=== PATIENT | male | born 1960 | race African-American/Black ===

== ENCOUNTER 2019-05-15 16:30 | Observation (INO) | payer MEDICARE, MEDICAID ==
[~2019-05-15] VITALS: Ht 175.3 cm; Wt 74.6 kg
[~2019-05-15 16:30] MED LIST: FLEXERIL OR; LORTAB 5 OR; LORTAB 7.5 PO; NO; ULTRAM50 M1 PO; ULTRAM50 MG OR
--- NOTE | 2019-05-15 16:48 | NUR ---
PATIENT AMBULATED TO ROOM WITH STEADY GAIT AND PHYSICIAN AT BEDSIDE FOR EVAL
[2019-05-15 17:06] LABS: HEMATOCRIT 40.1 % (39.0-50.0); HEMOGLOBIN 13.5 g/dl (14.0-18.0); IMMATURE GRANULOCYTES 0.2 % (0.0-5.0); MEAN CELL VOLUME 92.2 fL CALC (80.0-100.0); MEAN CORPUSCULAR HGB CONC 33.7 g/L CALC (32.0-36.0); NEUT# 1.75 thou/uL (1.82-7.42); RED BLOOD COUNT 4.35 mill/uL (4.70-6.10); RED CELL DISTRI WIDTH 15.2 % (11.5-15.5)
[2019-05-15 17:23] LABS: ALBUMIN 4.1 g/dL (3.2-5.0); ALKALINE PHOSPHATASE 88 u/l (38-126); ANION GAP 12 (6-22 (CALC)); BILIRUBIN, TOTAL 0.3 mg/dL (0.0-1.4); BUN 11 mg/dL (9-20); BUN/CREATININE RATIO 11 (12-20 (CALC)); CARBON DIOXIDE 26 mmol/l (22-30); CHLORIDE 105 mmol/l (95-108); GFR > 60 ML/MIN (>=60 (CALC)); GFR FOR AFR.AMER. > 60 ML/MIN (>=60 (CALC)); LIPASE 445 u/l (23-300); POTASSIUM 4.1 mmol/l (3.5-5.1); SGOT/AST 65 u/l (17-59); SODIUM 138 mmol/l (137-146); TOTAL PROTEIN 7.9 g/dL (6.3-8.2)
[2019-05-15 17:24] LABS: D-DIMER 0.28 mg/L (0.19-0.60); PROTHROMBIN TIME 10.3 SECONDS (9.0-12.5)
--- NOTE | 2019-05-15 17:48 | NUR ---
PATIENT MEDICATED WITH 324 MG OF ASPIRIN PO, INFORMED TO CALL FOR ANY UPSET STOMACH. NITRO OINTMENT APPLIES TO LEFT UPPER BACK FOR CHEST PAIN 01/01. CALL LIGHT GIVEN, AT BEDSIDE. WILL CONTINUE TO MONITOR.
--- NOTE | 2019-05-15 18:29 | NUR ---
PATIENT REPORTS NO CHANGE IN CHEST PAIN AFTER NITRO OINTMENT APPLIED.
--- NOTE | 2019-05-15 18:42 | NUR ---
AT BEDSIDE TO DISCUSS RESULTS AND PLANS TO ADMIT
--- NOTE | 2019-05-15 18:45 | NUR ---
BEDSIDE REPORT GIVEN TO CHIKIS KRISHNAN. CARE RELINQUISHED.
--- NOTE | 2019-05-15 18:46 | NUR ---
BEDSIDE REPORT GIVEN. PT TO BE ADMITTED. WAITING ON BED.
--- NOTE | 2019-05-15 19:40 | NUR ---
Admission Note Report Given to: CHIKIS MENJIVAR Transported by: X Wheelchair Stretcher Transported with: X Nurse Transporter X Patent IV O2 X Watch Supervisor
[2019-05-15 19:58] VITALS: BP 152/79
--- NOTE | 2019-05-15 20:30 | NUR ---
PATIENT ADMITTED FROM ER VIA WHEELCHAIR WITH ER STAFF IN ATTENDANCE AND SEVERAL VISITOR FOLLOWING. PATIENT MIN ASSIST FROM W/C TO STANDING SCALE TO BR-STEADY ON HIS FEET. PATIENT STATES THAT HE IS VOIDING QS WITHOUT ANY DIFFICULTY. ADMITTED TODAY FOR PANCREATITIS. C/O LEFT UPPER BACK PAIN-MEDICATED FOR PAIN WITH LORTAB 5/325MG PO. IV SITE TO LEFT AC SITE-IVF NS HUNG AND INFUSING AT 100CC/HR. SITE IS HEALTHY AT THIS TIME. TELE MONITOR INPLACE. LUNGS CLEAR. ABD IS SOFT WITH ACTIVE BS-STATES THAT HE HAD BM THIS MORNING,ORIENTED TO ROOM AND SURROUNDING. PATIENT EATING FOOD PROVIDED BY FAMILY WITHOU ANY DIFF. INSTRUCTED ON USE OF NURSE CALL LIGHT SYSTEM, TV REMOTE, AND PHONE. SAFETY PRECAUTIONS REINFORCED. CALL LIGHT IN REACH. WILL CONT TO MONITOR.
--- NOTE | 2019-05-16 00:27 | NUR ---
PATIENT RESTING IN BED AT THIS TIME WITH HOB ELEVATED. PATIENT WITH NO COMPLAINTS AT THIS TIME. TELE MONITOR IN PLACE. LAB WORK WAS DRAWN. IVF NS PATENT AND INFUSING VIA LEFT AC SITE. CALL LIGHT IN REACH. WILL CONT TO MONITOR.
--- NOTE | 2019-05-16 04:08 | NUR ---
PATIENT APPEARS SLEEPING AT THIS TIME. TELE MONITOR IN PLACE. IVF NS PATENT AND INFUSING VIA LEFT AC SITE AT 100CC/HR. SITE REMAINS HEALTHY AT THIS TIME. CALL LIGHT IN REACH. WILL CONT TO MONITOR.
[2019-05-16 04:12] VITALS: BP 134/78
[2019-05-16 06:32] LABS: CHOLESTEROL HDL RATIO 2.6 (<4.4 (CALC)); MAGNESIUM 1.7 mg/dL (1.6-2.3)
--- NOTE | 2019-05-16 07:00 | NUR ---
REPORT RECEIVED FROM CHIKIS MENJIVAR;PT APPEARS TO BE SLEEPING IN SEMI FOWLERS POSITION;NO S/S OF DISTRESS NOTED;RESPIRATIONS EVEN AND UNLABORED ON RA;IV FLUIDS INFUSING WITH EASE;TELE MONITORING IN PLACE;BED IN THE LOWEST POSITION WITH CALL LIGHT IN REACH;WILL CONTINUE TO MONITOR
--- NOTE | 2019-05-16 07:50 | NUR ---
PT RESTING IN SEMI FOWLERS POSITION, A&O X3;VS OBTAINED AND ASSESSMENT COMPLETED;PT DENIES ANY CURRENT PAIN OR DISCOMFORTS,PAIN SCALE AND REPORTING EDUCATED;RESPIRATIONS EVEN AND UNLABORED ON RA;ABDOMEN SOFT ON PALPATION AND ACTIVE IN ALL 4 QUADRANTS;STRONG PEDAL PULSES;SKIN INTACT;#20G TO LAC INFUSING NS @ 100ML/HR,SITE APPEARS HEALTHY;TELE MONITORING IN PLACE;PT DENIES ANY ADDITIONAL NEEDS AT THIS TIME AND IS ENCOURAGED TO CALL FOR ASSISTANCE IF NEEDED;CALL LIGHT IN REACH;WILL CONTINUE TO MONITOR
[2019-05-16 07:54] VITALS: BP 131/62
--- NOTE | 2019-05-16 10:52 | NUR ---
AT BEDSIDE DISCUSSING POC INCLUDING DISCHARGE HOME,PT AND SPOUSE VERBALIZE UNDERSTANDING.
--- NOTE | 2019-05-16 11:40 | NUR ---
ALL DISCHARGE INSTRUCTIONS PROVIDED AT THIS TIME,QUESTIONS ANSWERED;PT INSTRUCTED TO CUT DOWN ON DRINKING AND SMOKING. IV SITE REMOVED WITH CATHETER INTACT;PT DENIES ANY ADDITIONAL NEEDS AT THIS TIME;WHEELCHAIR TO BE PROVIDED FOR DISCHARGE HOME;FAMILY TO PROVIDED TRANSPORTATION.
--- NOTE | 2019-05-16 12:26 | NUR ---
Discharge instructions given. Patient verbalizes understanding of same. Discharged in stable condition via Wheelchair to Home with family. All belongings sent with pt. Pt transported to [facility] via wheelchair in stable condition accompanied by volunteer and family for d/c home.
== END 2019-05-16 12:28 | disposition home or self-care (01) ==
LOC: ED 16:30 → ED-I 18:32 → ED 18:58 → MS2 18:59
PROVIDERS: Emergency Medicine; ADMIT Internal Medicine; ATTEND Internal Medicine
DX: K85.20 Alcohol induced acute pancreatitis without necrosis or infection (principal); R07.89 Other chest pain; F10.10 Alcohol abuse, uncomplicated; F17.200 Nicotine dependence, unspecified, uncomplicated

== ENCOUNTER 2019-07-20 09:05 | Day surgery (SDC) | payer MEDICARE, MEDICAID ==
[~2019-07-20] VITALS: Ht 175.3 cm; Wt 71.2 kg
[~2019-07-20 09:05] MED LIST changes: +AMOX/K CLAV875 M1 PO; +CYCLOBENZAPR10 MG PO; +FLEXERIL PO; +FLONASE AL50 MCG/ACT; +MEDDOSEPAK PO; +PREDNISONE10 MG PO; +ULTRAM50 MG PO
[2019-07-20 11:53] LABS: BARBITURATES NEGATIVE (NEGATIVE); COCAINE NEGATIVE (NEGATIVE); METHADONE NEGATIVE (NEGATIVE); OXCYCODONE NEGATIVE (NEGATIVE); TETRAHYDROCANNABIONOL NEGATIVE (NEGATIVE); TRICYLIC ANTIDEPRESSANTS NEGATIVE (NEGATIVE)
[2019-07-20 13:36] VITALS: BP 156/85
== END 2019-07-20 14:00 | disposition home or self-care (01) ==
LOC: ENDO 09:05
PROVIDERS: ATTEND Surgery
PROC: 0DBF8ZX Excision of Right Large Intestine, Via Natural or Artificial Opening Endoscopic, Diagnostic (ICD-10-PCS; principal; 2019-07-20)
PROC: 0DBL8ZX Excision of Transverse Colon, Via Natural or Artificial Opening Endoscopic, Diagnostic (ICD-10-PCS; 2019-07-20)
PROC: 3E0H8GC Introduction of Other Therapeutic Substance into Lower GI, Via Natural or Artificial Opening Endoscopic (ICD-10-PCS; 2019-07-20)
DX: Z12.11 Encounter for screening for malignant neoplasm of colon (principal); D12.2 Benign neoplasm of ascending colon; D12.3 Benign neoplasm of transverse colon; K57.30 Diverticulosis of large intestine without perforation or abscess without bleeding; F17.210 Nicotine dependence, cigarettes, uncomplicated

== ENCOUNTER 2020-09-16 08:06 | Emergency (ER) | payer MEDICARE, MEDICAID ==
[~2020-09-16] VITALS: Ht 175.3 cm; Wt 85.0 kg
[2020-09-16] MEDS ORDERED: NORVASC5 M1 PO (10:37)
[2020-09-16] MEDS ORDERED: CYCLOBENZAPR5 MG PO (10:41)
[2020-09-16] MEDS ORDERED: TRAMADOL HYDROC50 M1 PO (10:41)
[2020-09-16 11:16] VITALS: BP 130/79
== END 2020-09-16 11:16 | disposition home or self-care (01) ==
LOC: ED 08:06
DX: M54.2 Cervicalgia (principal); M54.6 Pain in thoracic spine; F17.200 Nicotine dependence, unspecified, uncomplicated

== ENCOUNTER → 2022-10-12 | Day surgery (SDC) | payer MEDICARE, MEDICAID ==
[~2022-10-12] VITALS: Ht 175.3 cm; Wt 71.2 kg
[~2022-10-12] MED LIST changes: +ACETAMINOP160 MG/5 M PO; +CYCLOBENZAPR5 MG PO; +NORVASC5 M1 PO; +TRAMADOL HYDROC50 M1 PO
[2022-10-12 08:05] VITALS: BP 155/83
== END | disposition home or self-care (01) ==
LOC: ENDO 06:51 → ORM 07:30 → ENDO 07:30 → ORM 08:00
PROVIDERS: ATTEND Internal Medicine Gastroenterology
DX: Z12.11 Encounter for screening for malignant neoplasm of colon (principal); K57.30 Diverticulosis of large intestine without perforation or abscess without bleeding; K21.9 Gastro-esophageal reflux disease without esophagitis; F17.200 Nicotine dependence, unspecified, uncomplicated; Z86.010 Personal history of colon polyps; R33.9 Retention of urine, unspecified; Z53.09 Procedure and treatment not carried out because of other contraindication

== ENCOUNTER 2023-01-12 06:23 | Emergency (ER) | payer MEDICARE, MEDICAID ==
[~2023-01-12] VITALS: Ht 175.3 cm; Wt 68.0 kg
[2023-01-12] VITALS (8 sets, daily range): BP systolic 131–151; BP diastolic 65–89
[2023-01-12 07:15] LABS: BASO% 0.6 % (0-3); EOS% 4.1 % (0-8); HEMATOCRIT 41.7 % (39.0-50.0); HEMOGLOBIN 13.4 g/dl (14.0-18.0); LYMPH% 34.8 % (15-41); MEAN CELL VOLUME 93.3 fL CALC (80.0-100.0); MEAN CORPUSCULAR HGB CONC 32.1 g/dL CAL (32.0-36.0); MONO% 11.5 % (2-13); NEUT# 2.29 thou/uL (1.82-7.42); RED BLOOD COUNT 4.47 mill/uL (4.70-6.10); RED CELL DISTRI WIDTH 15.7 % (11.5-15.5)
[2023-01-12 08:32] LABS: ALBUMIN 4.2 g/dL (3.2-5.0); ALKALINE PHOSPHATASE 101 u/l (38-126); ANION GAP 14 (6-22 (CALC)); BILIRUBIN, TOTAL 0.4 mg/dL (0.2-1.3); BUN 11 mg/dL (8-23); BUN/CREATININE RATIO 11 (12-20 (CALC)); CARBON DIOXIDE 27 mmol/l (22-30); CHLORIDE 100 mmol/l (95-108); GFR FOR AFR.AMER. > 60 ML/MIN (>=60 (CALC)); GFR OTHER RACES > 60 ML/MIN (>=60 (CALC)); POTASSIUM 4.5 mmol/l (3.5-5.1); SGOT/AST 79 u/l (19-48); SODIUM 137 mmol/l (137-146); TOTAL PROTEIN 7.7 g/dL (6.3-8.2)
[2023-01-12 08:51] LABS: URINE BILIRUBIN - DIPSTICK NEGATIVE (NEGATIVE); URINE BLOOD DIPSTICK NEGATIVE (NEGATIVE); URINE COLOR YELLOW; URINE GLUCOSE - DIPSTICK NEGATIVE (NEGATIVE); URINE KETONE NEGATIVE (NEGATIVE); URINE LEUK ESTERASE NEGATIVE (NEGATIVE); URINE PROTEIN - DIPSTICK NEGATIVE (NEG-TRACE); URINE SPECIFIC GRAVITY 1.025
[2023-01-12 08:58] LABS: URINE NITRITE - DIPSTICK NEGATIVE (Negative)
[2023-01-12] MEDS ORDERED: DECADRON4 MG PO (09:21)
[2023-01-12] MEDS ORDERED: LIDODERM5 % EX (09:21)
[2023-01-12] MEDS ORDERED: FLEXERIL5 M1 PO (09:21)
== END 2023-01-12 09:30 | disposition home or self-care (01) ==
LOC: ED 06:23
PROVIDERS: Emergency Medicine
DX: S29.012A Strain of muscle and tendon of back wall of thorax, initial encounter (principal); F17.200 Nicotine dependence, unspecified, uncomplicated; X50.3XXA Overexertion from repetitive movements, initial encounter; Y93.89 Activity, other specified; Y92.009 Unspecified place in unspecified non-institutional (private) residence as the place of occurrence of the external cause

== ENCOUNTER 2023-10-18 18:14 | Emergency (ER) | payer MEDICARE, MEDICAID ==
[~2023-10-18] VITALS: Ht 175.3 cm; Wt 78.0 kg
[~2023-10-18 18:14] MED LIST changes: +DECADRON4 MG PO; +FLEXERIL5 M1 PO; +LIDODERM5 % EX
[2023-10-18 19:30] VITALS: BP 149/84
[2023-10-18 20:50] LABS: BASO% 0.3 % (0-3); HEMATOCRIT 41.6 % (39.0-50.0); HEMOGLOBIN 13.7 g/dl (14.0-18.0); IMMATURE GRANULOCYTES 0.1 % (0.0-5.0); LYMPH% 23.4 % (15-41); MEAN CELL VOLUME 91.8 fL CALC (80.0-100.0); MEAN CORPUSCULAR HGB 30.2 pG CALC (26.0-32.0); MEAN CORPUSCULAR HGB CONC 32.9 g/dL CAL (32.0-36.0); MONO% 11.8 % (2-13); NEUT# 4.66 thou/uL (1.82-7.42); NEUT% 64.4 % (42-76); RED BLOOD COUNT 4.53 mill/uL (4.70-6.10); RED CELL DISTRI WIDTH 14.7 % (11.5-15.5)
[2023-10-18 21:06] LABS: BUN 12 mg/dL (8-23); BUN/CREATININE RATIO 12 (12-20 (CALC)); CHLORIDE 99 mmol/l (95-108); GFR FOR AFR.AMER. > 60 ML/MIN (>=60 (CALC)); GFR OTHER RACES > 60 ML/MIN (>=60 (CALC)); POTASSIUM 4.4 mmol/l (3.5-5.1); SODIUM 133 mmol/l (137-146)
[2023-10-18 21:07] LABS: ANION GAP 17 (6-22 (CALC)); CARBON DIOXIDE 21 mmol/l (22-30)
[2023-10-18] MEDS ORDERED: BENZONATATE200 MG PO (21:17)
[2023-10-18 21:52] VITALS: BP 149/84
== END 2023-10-18 21:52 | disposition home or self-care (01) ==
LOC: ED 18:14
PROVIDERS: Family Medicine
DX: M54.6 Pain in thoracic spine (principal); F17.200 Nicotine dependence, unspecified, uncomplicated

== ENCOUNTER 2023-11-14 02:52 | Emergency (ER) | payer MEDICARE, MEDICAID ==
[~2023-11-14] VITALS: Ht 175.3 cm; Wt 68.0 kg
[2023-11-14] VITALS (13 sets, daily range): BP systolic 119–140; BP diastolic 64–78
[~2023-11-14 02:52] MED LIST changes: +BENZONATATE200 MG PO
[2023-11-14 03:24] LABS: BASO% 0.6 % (0-3); EOS% 3.6 % (0-8); HEMATOCRIT 38.2 % (39.0-50.0); HEMOGLOBIN 12.4 g/dl (14.0-18.0); IMMATURE GRANULOCYTES 0.2 % (0.0-5.0); LYMPH% 52.3 % (15-41); MEAN CELL VOLUME 94.6 fL CALC (80.0-100.0); MEAN CORPUSCULAR HGB 30.7 pG CALC (26.0-32.0); MEAN CORPUSCULAR HGB CONC 32.5 g/dL CAL (32.0-36.0); MONO% 11.3 % (2-13); NEUT# 1.52 thou/uL (1.82-7.42); RED BLOOD COUNT 4.04 mill/uL (4.70-6.10); RED CELL DISTRI WIDTH 14.9 % (11.5-15.5)
[2023-11-14 03:31] LABS: ALBUMIN 4.3 g/dL (3.2-5.0); ALKALINE PHOSPHATASE 72 u/l (38-126); BILIRUBIN, TOTAL 0.3 mg/dL (0.2-1.3); BUN 8 mg/dL (8-23); BUN/CREATININE RATIO 8 (12-20 (CALC)); CHLORIDE 109 mmol/l (95-108); GFR FOR AFR.AMER. > 60 ML/MIN (>=60 (CALC)); GFR OTHER RACES > 60 ML/MIN (>=60 (CALC)); SGOT/AST 71 u/l (19-48); TOTAL PROTEIN 8.1 g/dL (6.3-8.2)
[2023-11-14 03:33] LABS: ANION GAP 11 (6-22 (CALC)); CARBON DIOXIDE 26 mmol/l (22-30); SODIUM 142 mmol/l (137-146)
[2023-11-14 03:39] LABS: ACT PARTIAL THROMBO TIME 24.3 SECONDS (20.0-32.5); INTERNATIONAL NORMALIZED RATIO 1.1 RATIO (0.7-1.3); PROTHROMBIN TIME 10.2 SECONDS (9.0-12.5)
[2023-11-14 04:04] LABS: D-DIMER 0.39 mg/L (0.19-0.60)
[2023-11-14] MEDS ORDERED: TORADOL PO (05:47)
== END 2023-11-14 06:06 | disposition home or self-care (01) ==
LOC: ED 02:52
PROVIDERS: Family Medicine
DX: R07.89 Other chest pain (principal); J20.8 Acute bronchitis due to other specified organisms; F17.200 Nicotine dependence, unspecified, uncomplicated; Z20.822 Contact with and (suspected) exposure to COVID-19

== ENCOUNTER 2024-04-24 07:40 | Day surgery (SDC) | payer MEDICARE, MEDICAID ==
[~2024-04-24] VITALS: Ht 175.3 cm; Wt 68.9 kg
[~2024-04-24 07:40] MED LIST changes: +DOXY-CAPS100 MG PO; +GABAPENTIN300 M2 PO; +TORADOL PO; +TRAMADOL HCL50 MG PO; +TYLENOL500 MG PO; +VALACYCLOVIR HCL1 GM PO; +VIAGRA100 MG PO
[2024-04-24] MEDS ORDERED: FAMOTIDINE 10MG/ML 2ML SDV IV ONE (07:44)
[2024-04-24] MEDS ORDERED: LACTATED RINGER'S 1,000 ML IV ONE (07:44)
[2024-04-24 11:33] VITALS: BP 135/74
[2024-04-24] MEDS ORDERED: STERILE WATER FOR IRRIGATION 1,000 ML BTL IR ONE (13:25)
[2024-04-24] MEDS ORDERED: LIDOCAINE HCL 2% 2ML SDV IV ONE (13:40)
[2024-04-24] MEDS ORDERED: PROPOFOL 200 MG/20 ML VIAL IV ONE (13:40)
== END 2024-04-24 11:35 | disposition home or self-care (01) ==
LOC: ENDO 07:40 → ORM 08:40 → ENDO 08:40 → ORM 09:15 → ENDO 09:15
PROVIDERS: ATTEND Internal Medicine Gastroenterology
PROC: 0DBK8ZX Excision of Ascending Colon, Via Natural or Artificial Opening Endoscopic, Diagnostic (ICD-10-PCS; principal; 2024-04-24)
PROC: 0DBL8ZX Excision of Transverse Colon, Via Natural or Artificial Opening Endoscopic, Diagnostic (ICD-10-PCS; 2024-04-24)
PROC: 0DBM8ZX Excision of Descending Colon, Via Natural or Artificial Opening Endoscopic, Diagnostic (ICD-10-PCS; 2024-04-24)
DX: Z12.11 Encounter for screening for malignant neoplasm of colon (principal); D12.2 Benign neoplasm of ascending colon; D12.4 Benign neoplasm of descending colon; D12.3 Benign neoplasm of transverse colon; K57.30 Diverticulosis of large intestine without perforation or abscess without bleeding; K64.8 Other hemorrhoids; F17.210 Nicotine dependence, cigarettes, uncomplicated; Z86.010 Personal history of colon polyps

== ENCOUNTER 2024-05-12 10:07 | Emergency (ER) | payer OTHER, MEDICARE, MEDICAID ==
[~2024-05-12] VITALS: Ht 175.3 cm; Wt 73.5 kg
[2024-05-12 10:40] VITALS: BP 148/76
[2024-05-12 10:45] VITALS: BP 135/71
[2024-05-12] MEDS ORDERED: traMADol HCL 50 MG/TAB PO ONE (11:10)
[2024-05-12] MEDS ORDERED: ORPHENADRINE CITRATE 30 MG/ML AMP IM ONE (11:10)
[2024-05-12] MEDS ORDERED: CYCLOBENZAPRINE HCL 5 MG TAB PO ONE (11:40)
[2024-05-12 17:07] LABS: URINE BILIRUBIN - DIPSTICK Negative (NEGATIVE); URINE BLOOD DIPSTICK Negative (NEGATIVE); URINE GLUCOSE - DIPSTICK Negative (NEGATIVE); URINE KETONE Negative (NEGATIVE); URINE LEUK ESTERASE Negative (NEGATIVE); URINE NITRITE - DIPSTICK Negative (Negative); URINE PROTEIN - DIPSTICK Negative (NEG-TRACE); URINE UROBILINOGEN - DIPSTICK 0.2 E.U./dL (0.2)
[2024-05-12 17:08] LABS: URINE COLOR Yellow
[2024-05-12] MEDS ORDERED: TRAMADOL HYDROC50 M1 PO (17:19)
[2024-05-12] MEDS ORDERED: CYCLOBENZAPRINE10 MG PO (17:19)
[2024-05-12 17:20] VITALS: BP 135/71
== END 2024-05-12 17:26 | disposition home or self-care (01) | DRG 563 ==
LOC: ED 10:07
PROVIDERS: Emergency Medicine
DX: S39.012A Strain of muscle, fascia and tendon of lower back, initial encounter (principal); M62.838 Other muscle spasm; F17.210 Nicotine dependence, cigarettes, uncomplicated; V89.2XXA Person injured in unspecified motor-vehicle accident, traffic, initial encounter

== ENCOUNTER 2024-10-08 10:33 | Emergency (ER) | payer MEDICARE, MEDICAID ==
[~2024-10-08] VITALS: Ht 175.3 cm; Wt 64.0 kg
[~2024-10-08 10:33] MED LIST changes: +CYCLOBENZAPRINE10 MG PO
[2024-10-08 11:18] VITALS: BP 137/77
[2024-10-08 11:38] LABS: BASO% 1.1 % (0-3); EOS% 5.1 % (0-8); HEMATOCRIT 40.1 % (39.0-50.0); IMMATURE GRANULOCYTES 0.6 % (0.0-5.0); LYMPH% 49.9 % (15-41); MEAN CELL VOLUME 94.8 fL CALC (80.0-100.0); MEAN CORPUSCULAR HGB 30.7 pG CALC (26.0-32.0); MEAN CORPUSCULAR HGB CONC 32.4 g/dL CAL (32.0-36.0); MONO% 12.8 % (2-13); NEUT# 1.07 thou/uL (1.82-7.42); NEUT% 30.5 % (42-76); RED BLOOD COUNT 4.23 mill/uL (4.70-6.10); RED CELL DISTRI WIDTH 15.6 % (11.5-15.5)
[2024-10-08 11:51] LABS: ALBUMIN 4.3 g/dL (3.2-5.0); ALKALINE PHOSPHATASE 75 u/l (38-126); ANION GAP 14 (6-22 (CALC)); BILIRUBIN, TOTAL 0.3 mg/dL (0.2-1.3); BUN 7 mg/dL (8-23); BUN/CREATININE RATIO 7 (12-20 (CALC)); CARBON DIOXIDE 25 mmol/l (22-30); CHLORIDE 105 mmol/l (95-108); ESTIMATED GFR 84 ML/MIN (>=90 (CALC)); POTASSIUM 4.2 mmol/l (3.5-5.1); SGOT/AST 77 u/l (19-48); SODIUM 140 mmol/l (137-146); TOTAL PROTEIN 7.7 g/dL (6.3-8.2)
[2024-10-08 12:00] VITALS: BP 131/71
[2024-10-08 12:30] VITALS: BP 144/76
[2024-10-08 13:00] VITALS: BP 153/80
[2024-10-08 13:28] VITALS: BP 153/80
== END 2024-10-08 13:25 | disposition home or self-care (01) ==
LOC: ED 10:33
PROVIDERS: Family Medicine
DX: R42 Dizziness and giddiness (principal); I10 Essential (primary) hypertension; F17.200 Nicotine dependence, unspecified, uncomplicated; R94.31 Abnormal electrocardiogram [ECG] [EKG]